=== PATIENT | female | born 1955 | race Hispanic/Latino ===

== ENCOUNTER → 2017-08-09 | Outpatient (CLI) | payer MEDICAID ==
[~2017-08-09] MED LIST: ASPI-1181 PO; ATOR40TA71 PO; CHOL500050 PO; CILO50TA PO; FERR325T22 PO; FOLI1TAB85 PO; INSU100I3 SQ; LEVO175T9 PO; NITR0.4T50 SL; SEVE800 PO; TICA90TA PO
== END | disposition home or self-care (01) ==
LOC: SHCH 12:52
PROVIDERS: ATTEND Internal Medicine Cardiovascular Disease
DX: I65.23 Occlusion and stenosis of bilateral carotid arteries (principal)
CPT/HCPCS: 93880